=== PATIENT | male | born 1975 | race Caucasian/White ===

== ENCOUNTER 2023-04-30 05:05 | Emergency (ER) | payer OTHER ==
[~2023-04-30] VITALS: Ht 170.2 cm; Wt 79.4 kg
[2023-04-30 05:19] VITALS: BP 124/72
--- NOTE | 2023-04-30 05:50 | NUR ---
PT TO BED 12
--- NOTE | 2023-04-30 07:00 | NUR ---
Patient being evaluated by physician at bedside.
--- NOTE | 2023-04-30 07:02 | NUR ---
PT. HAS BEEN GIVEN UA CUP. NO URINE AT THIS TIME. STATES HE IS UNABLE TO. WILL ATTEMPT AGAIN.
--- NOTE | 2023-04-30 07:16 | NUR ---
Pt report given to GLORIA Au. Transfer of care at this time.
[2023-04-30] MEDS ORDERED: KETOROLAC 60 MG/2 ML VIAL IM ONE (07:25)
[2023-04-30] MEDS ORDERED: ONDANSETRON 4 MG ODT PO ONE (07:25)
[2023-04-30 08:00] LABS: APPEARANCE,URINE CLEAR (CLEAR); BILIRUBIN,URINE NEGATIVE (NEGATIVE); BLOOD, URINE TRACE-I (NEGATIVE); COLOR,URINE YELLOW (YELLOW); LEUKOCYTE ESTERASE ,URINE NEGATIVE (NEGATIVE); NITRITE, URINE NEGATIVE (NEGATIVE); UGLUCOSE NEGATIVE (NEGATIVE)
[2023-04-30] MEDS ORDERED: NACL 0.9% 1,000 ML IV SCH (08:20)
--- NOTE | 2023-04-30 08:34 | NUR ---
PT WHEELED TO CT SCAN IN WHEELCHAIR
[2023-04-30 08:39] LABS: BASOPHILS % (AUTO) 0.1 % (0.0-2.0); EOSINOPHILS % (AUTO) 0.1 % (0.0-4.0); HEMATOCRIT 42.4 % (36-52); HEMOGLOBIN 14.3 g/dL (12.0-18.0); LYMPHOCYTES # (AUTO) 0.6 K/uL (2.0-11.5); MEAN CORPUSCULAR HEMOGLOBIN 31 pg (27-31); MEAN CORPUSCULAR HGB CONC 34 g/dL (33-37); MONOCYTES # (AUTO) 0.5 K/uL (0.8-1.0); NEUTROPHILS # (AUTO) 11.5 K/uL (1.8-7.7); NEUTROPHILS % (AUTO) 90.8 % (42.2-75.2); PLATELET COUNT (AUTO) 232 K/uL (140-450); RED BLOOD CELL COUNT(AUTO) 4.56 MIL/uL (4.20-6.10); RED CELL DISTRIBUTION WIDTH 13.6 % (11.6-13.7); WHITE BLOOD COUNT (AUTO) 12.7 K/uL (4.8-10.8)
--- NOTE | 2023-04-30 08:42 | NUR ---
PT WHEELED BACK TO BED [address]
[2023-04-30 08:55] LABS: ALBUMIN 3.8 g/dL (3.4-5.0); ANION GAP 10.6 (8-16); CARBON DIOXIDE 29.5 mmol/L (21-32); CREATININE 1.1 mg/dL (0.6-1.3); POTASSIUM 4.1 mmol/L (3.5-5.1); TOTAL BILIRUBIN 0.4 mg/dL (0.0-1.0)
[2023-04-30] MEDS ORDERED: IBUP-2213 PO (09:34)
[2023-04-30] MEDS ORDERED: ACET-8905 PO (09:34)
[2023-04-30] MEDS ORDERED: ONDA8TAB87 PO (09:34)
--- NOTE | 2023-04-30 10:10 | NUR ---
IV removed, catheter intact and site benign. Applied folded 4x4 gauze and tape to stop bleeding.
--- NOTE | 2023-04-30 10:13 | NUR ---
Patient discharged with v/s stable. Written and verbal after care instructions given and explained. Patient alert, oriented and verbalized understanding of instructions. Ambulatory with steady gait. All questions addressed prior to discharge. ID band removed. Patient advised to follow up with PMD. Rx of [id number],ibuprofen, zofran given. Patient educated on indication of medication including possible reaction and side effects. Opportunity to ask questions provided and answered.
[2023-04-30 10:14] VITALS: BP 124/72
== END 2023-04-30 10:14 | disposition home or self-care (01) ==
LOC: MED 05:05
DX: M54.50 Low back pain, unspecified (principal); R11.2 Nausea with vomiting, unspecified
CPT/HCPCS: 36415; 74176; 80053; 81003; 83690; 85025; 96372; 99285; J1885; Q0162